=== PATIENT | female | born 1970 | race Caucasian/White ===

== ENCOUNTER → 2019-01-25 | Outpatient (CLI) | payer OTHER ==
[~2019-01-25] MED LIST: ARIP20 PO; GABA300 PO; KETO10 PO; LEVSOD150 PO; ONDA4ODT MM; Prazosin HCl5 MG PO; SULF500A PO; TRAZ100 PO; VENL150ER PO
== END ==
LOC: LAB SHORT 17:50 → LAB 17:50
DX: L08.89 Other specified local infections of the skin and subcutaneous tissue (principal)
CPT/HCPCS: 87070; 87077; 87147; 87186; 87205